=== PATIENT | female | born 1975 | race Caucasian/White ===

== ENCOUNTER → 2020-06-26 | Outpatient (CLI) | payer BC ==
--- NOTE | 2020-06-26 11:57 | Diagnostic Imaging Report ---
Left shoulder 1124 hours. INDICATION: Shoulder pain. 3 views were obtained. There are no prior studies available for comparison. FINDINGS: There is no fracture, dislocation or acute bony abnormality evident. There is moderate degenerative disease of the glenohumeral joint and acromioclavicular joint. The soft tissues are unremarkable. IMPRESSION: 1. There is no evidence for an acute bony abnormality. 2. If there is clinical concern regarding injury to the rotator cuff or labrum, then MRI would be recommended for further study. Dictated by: Dictated on workstation # [id number]
== END ==
LOC: RAD FS 11:08
PROVIDERS: ATTEND Nurse Practitioner
DX: M25.512 Pain in left shoulder (principal)
CPT/HCPCS: 73030

== ENCOUNTER 2021-04-29 09:36 | Outpatient (CLI) | payer BC ==
[~2021-04-29] VITALS: Ht 157.5 cm; Wt 114.5 kg
[2021-04-29] MEDS ORDERED: SUCR1TAB36 PO (11:26)
[2021-04-29] MEDS ORDERED: LORA-407 PO (11:26)
[2021-04-29] MEDS ORDERED: LABE100T6 PO (11:26)
[2021-04-29] MEDS ORDERED: LOSA25TA41 PO (11:26)
[2021-04-29] MEDS ORDERED: OMEP20CA18 PO (11:26)
[2021-04-29] MEDS ORDERED: BUSP5TAB59 PO (11:26)
[2021-04-29] MEDS ORDERED: HYDR-3584 PO (11:26)
[2021-04-29] MEDS ORDERED: SPIR25TA5 PO (11:26)
== END 2021-04-29 15:55 | disposition home or self-care (01) ==
LOC: PREOP 09:36
PROVIDERS: ATTEND Surgery
DX: Z01.818 Encounter for other preprocedural examination (principal)

== ENCOUNTER → 2021-04-30 | Outpatient (CLI) | payer BC ==
[~2021-04-30] MED LIST: BUSP5TAB59 PO; HYDR-3584 PO; LABE100T6 PO; LORA-407 PO; LOSA25TA41 PO; OMEP20CA18 PO; SPIR25TA5 PO; SUCR1TAB36 PO
--- NOTE | 2021-04-30 09:43 | Diagnostic Imaging Report ---
PROCEDURE: US Gallbladder. TECHNIQUE: Multiple real-time grayscale images were obtained over the right upper quadrant in various projections. INDICATION: Right upper quadrant pain FINDINGS: The liver is normal in size without focal lesions. There is no biliary dilatation. Common bile duct measures 4 mm. There is no cholelithiasis, gallbladder wall thickening or pericholecystic fluid. Pancreas is not well-seen due to bowel gas. Right kidney is normal. There is no ascites. Aorta is not well-seen due to bowel gas. IVC is patent. Hepatopedal flow in main portal vein. IMPRESSION: Unremarkable right upper quadrant ultrasound Dictated by: Dictated on workstation # [id number]
== END ==
LOC: RAD FS 08:04
PROVIDERS: ATTEND Surgery
DX: R10.11 Right upper quadrant pain (principal); R11.2 Nausea with vomiting, unspecified
CPT/HCPCS: 76705

== ENCOUNTER → 2021-05-04 | Outpatient (CLI) | payer BC | LOC: LAB FS 10:00 | PROVIDERS: ATTEND Surgery | DX: Z01.812 Encounter for preprocedural laboratory examination (principal); Z12.11 Encounter for screening for malignant neoplasm of colon; K21.9 Gastro-esophageal reflux disease without esophagitis; Z20.822 Contact with and (suspected) exposure to COVID-19 | CPT/HCPCS: 87635 ==

== ENCOUNTER 2021-05-06 08:45 | Day surgery (SDC) | payer BC ==
--- NOTE | 2021-04-29 20:20 | HISTORY AND PHYSICAL ---
DATE OF SERVICE: DATE OF ADMISSION: 05/06/2021. ATTENDING PRIMARY CARE PHYSICIAN: Dr. Lennox Pineda. HISTORY OF PRESENT ILLNESS: The patient is a 45-year-old female who has had an epigastric crampy pain as well as intermittent episodes of diarrhea and constipation for the past several months. She reports that this has worsened over time and she did see her physician approximately 4 weeks ago and she was started on Protonix and Carafate. She describes the pain as sharp as well as burning sensation. Upon further questioning, she does report that she does have intermittent episodes of reflux type of symptoms as well as dysphagia. She is also in need of a screening colonoscopy. She did have a CT scan for another reason and diverticulosis was identified. Again, she reports intermittent episodes of diarrhea and constipation. No red blood per rectum nor any dark tarry stools. She also does have a remote family history of colon cancer with her maternal grandfather having the disease. She also reports that she has had nausea as well as episodes of vomiting and bloating after eating meals. She also does report again pain in the upper abdominal quadrants. PAST MEDICAL HISTORY: Hypertension, anxiety, seasonal allergies, diverticulosis. PAST SURGICAL HISTORY: Left knee arthroscopy in 1993, D and C in 2007. ALLERGIES: No known drug allergies. MEDICATIONS: Labetalol 100 mg b.i.d., spironolactone/hydrochlorothiazide 25/25 mg daily, Protonix 40 mg daily, Carafate 1 gram q.i.d., tizanidine 2 mg t.i.d., losartan 50 mg b.i.d., lorazepam 0.5 mg q.6 hours p.r.n., buspirone 5 mg b.i.d. SOCIAL HISTORY: Short interval of smoking for approximately 6 months, half a pack a day, in 2002. Negative alcohol. FAMILY HISTORY: Mother, father, hypertension. Maternal grandfather, colon cancer. VITAL SIGNS: Blood pressure 169/101. Current weight 252.7 pounds. REVIEW OF SYSTEMS: A well-nourished female, currently in no acute distress. She is not experiencing any shortness of breath or difficulty breathing. No chest pain, palpitations, diaphoresis. Intermittent episodes of nausea and vomiting, especially after meals and this is associated with abdominal bloating as well. She also reports that she has had epigastric burning sensation as well as a sharp pain, which has been intermittent for the past three months; however, has become more constant. She is also in need of a screening colonoscopy. She was found to have diverticulosis on incidental CT scan as well. She also reports that she has had some dysphagia with difficulty swallowing with a substernal chest pressure after food bolus. No red blood per rectum, no dark tarry stools. No fever, chills, no recent inadvertent weight loss. All other review of systems negative. PHYSICAL EXAMINATION: CHEST: Clear. Good breath sounds bilaterally. HEART: Regular. No murmurs. EXTREMITIES: No lower extremity edema, negative Homans sign. HEENT: No scleral icterus. NECK: No cervical lymphadenopathy. ABDOMEN: Nondistended, soft with mild epigastric tenderness upon deep palpation. No peritoneal signs. SKIN: Warm, dry. ASSESSMENT AND PLAN: A 45-year-old female with atypical gastroesophageal reflux disease, dysphagia, abdominal bloating and nausea and vomiting following meals. She is also having issues with dysphagia. She is also in need of a screening colonoscopy. At this time, we will schedule her for an EGD and colonoscopy. The differential diagnosis includes hiatal hernia, reflux esophagitis as well as a distal esophageal stricture. She may also have peptic ulcer disease and we will schedule her for an EGD with biopsies as appropriate as well as a possible balloon dilatation. She is also in need of a screening colonoscopy based on her age; however, she also does have intermittent episodes of diarrhea and constipation. We will also proceed with workup for her gallbladder including ultrasound and if this is negative, a HIDA scan for the possibility of biliary dyskinesia. Job ID: [id number] DocumentID: [id number] Dictated Date: 04/28/2021 16:03:29 Health Science Instructor Date: 04/28/2021 16:19:13 Dictated By: PALOMA WILLS MD
[2021-05-06] VITALS (14 sets, daily range): BP systolic 116–183; BP diastolic 56–100
[~2021-05-06] VITALS: Ht 157 cm; Wt 114.5 kg
[2021-05-06] MEDS ORDERED: HURRICAINE EXT TUBE (BENZOCAINE) XX PRN (09:00)
[2021-05-06] MEDS ORDERED: LIDOCAINE JELLY 2% 6 ML SYRINGE MM PRN (09:00)
[2021-05-06] MEDS ORDERED: MIDAZOLAM 5 MG/5 ML (VERSED) VIAL IV ONE (09:00)
[2021-05-06] MEDS ORDERED: fentaNYL INJ 100 MCG/2 ML AMP IVP ONE (09:00)
[2021-05-06] MEDS ORDERED: NS IV 500 ML 500 ML IV PRN (09:00)
[2021-05-06] MEDS ORDERED: NS IV 500 ML 500 ML ONE (09:05)
--- NOTE | 2021-05-06 10:12 | Progress Note-Pre Operative ---
Pre-Operative Progress Note H&P Reviewed The H&P was reviewed, patient examined and no changes noted. Date Seen by Provider: May 06, 2021 Time Seen by Provider: 10:00 Date H&P Reviewed: May 06, 2021 Time H&P Reviewed: 10:00 Pre-Operative Diagnosis: GERD, screening PALOMA WILLS MD May 06, 2021 10:12
--- NOTE | 2021-05-06 10:12 | Conscious Sedation/ASA ---
Conscious Sedation Pre-Proced Time 09:30 ASA Score 2 For ASA 3 and 4: Consider anesthesia and medical clearance. Also, for patients with a history of failed moderate sedation consider anesthesia. Airway Lungs Heart ASA score ASA 1: a normal healthy patient ASA 2: a patient with a mild systemic disease (mid diabetes, controlled hypertension, obesity ASA 3: a patient with a severe systemic disease that limits activity (angina, COPD, prior Myocardial infarction) ASA 4: a patient with an incapacitating disease that is a constant threat to life (CHF, renal failure) ASA 5: a moribund patient not expected to survive 24 hrs. (ruptured aneurysm) ASA 6: a declared brain- patient whose organs are being harvested. For emergent operations, add the letter E after the classification Mallampati Classification Grade 2 Sedation Plan Analgesia, Amnesia, Plan communicated to team members, Discussed options with patient/fam, Discussed risks with patient/fam The patient is an appropriate candidate to undergo the planned procedure, sedation, and anesthesia. The patient immediately re-assessed prior to indication. PALOMA WILLS MD May 06, 2021 10:12
--- NOTE | 2021-05-06 10:14 | Discharge Inst-Surgical ---
D/C Lap Instructions-ELMA Follow Up Activity as tolerated High Fiber Diet 25g or more per day Avoid Alcohol, Caffeine, Spicy Garwood and Acid foods. Drink 64 fluid oz or more of fluids per day. Symptoms to Report: Fever over 101 degree F, Nausea/Vomiting If any problems/questions: Contact your physician or go to Emergency Room PALOMA WILLS MD May 06, 2021 10:14
[2021-05-06] MEDS ORDERED: ONDANSETRON 4 MG/2 ML (SDV) Z0FRAN IVP PRN (10:15)
[2021-05-06] MEDS ORDERED: ACETAMINOPHEN 325 MG TABLET PO PRN (10:15)
[2021-05-06] MEDS ORDERED: morphine INJ 10 MG/ML 1ML (SYR OR VIAL) IVP PRN ×2 (10:15)
[2021-05-06] MEDS ORDERED: HYDROcodone/APAP 5 MG/325 MG (LORTAB) TAB PO PRN (10:15)
--- NOTE | 2021-05-06 11:06 | Progress Note-Post Operative ---
Post-Operative Progess Note Surgeon (s)/Concrete Boom Operator (s) Surgeon PALOMA WILLS MD Concrete Boom Operator: none Pre-Operative Diagnosis GERD, screening Post-Operative Diagnosis reflux esophagitis(stage 2), mild distal esophageal stricture, mild-mod gastritis. mild chronic stage 2 ext and int hemorrhoids, mild sigmoid diverticulosis. Procedure & Operative Findings Date of Procedure 05/06/21 Procedure Performed/Findings EGD with bx and balloon dilatation. colonoscopy Anesthesia Type cs Estimated Blood Loss Estimated blood loss (mL): minimal Specimens/Packing Specimens Removed ge jxn, antrum PALOMA WILLS MD May 06, 2021 11:05
--- NOTE | 2021-05-06 17:47 | OPERATIVE REPORT ---
DATE OF SERVICE: 05/06/2021 ATTENDING PRIMARY CARE PHYSICIAN: Dr. Lennox Pineda. PREOPERATIVE DIAGNOSES: Gastroesophageal reflux disease, dysphagia, constipation, screening colonoscopy. POSTOPERATIVE DIAGNOSES: Reflux esophagitis stage II, mild distal esophageal stricture, small hiatal hernia approximately 2 cm in size, mild to moderate gastritis, no distal obstructions, mild chronic stage II external and internal hemorrhoids, mild sigmoid diverticulosis. PROCEDURE: EGD with biopsy and balloon dilatation, colonoscopy. SURGEON: Paloma Wills MD ANESTHESIA: Conscious sedation. ESTIMATED BLOOD LOSS: Minimal. FINDINGS: Reflux esophagitis stage II, mild distal esophageal stricture, small hiatal hernia approximately 2 cm in size, mild to moderate gastritis, no distal obstructions, mild chronic stage II external and internal hemorrhoids, mild sigmoid diverticulosis. DISPOSITION: The patient tolerated the procedure well. INDICATIONS: The patient is a 45-year-old female, who has had issues with gastroesophageal reflux disease with epigastric burning sensation as well as crampy pain for some time now; however, this has worsened. She states that this has progressed to dysphagia and have difficulty swallowing some types of foods on an intermittent basis. She also reports that she has been struggling with constipation and may have a bowel movement for a few days and when she does, the stool was hard and well-formed and does require straining upon defecation. DESCRIPTION OF PROCEDURE: The patient was brought to the endoscopy suite, laid in the left lateral decubitus position. After adequate IV pain and sedative medications and conscious sedation anesthesia, the mouthpiece was applied. The endoscope was placed in the mouth, visualizing the pharynx and hypopharyngeal region. Vocal cords, epiglottis and vallecula identified and appeared to be normal. The endoscope was gently abated esophageal opening and esophagus insufflated. The endoscope was then advanced through the first, second and third portions of esophagus at the level of GE junction, a reflux esophagitis stage II identified as well as a mild distal esophageal stricture and Schatzki's ring identified. This was biopsied with forceps with visualization of good hemostasis. The endoscope was then advanced in the stomach and endoscope retroflexed, visualizing a small hiatal hernia approximately 2 cm in size. This appeared to be a type 1 sliding hiatal hernia. There was a mild to moderate gastritis. No formal ulcerations, polyps, or any neoplasms. A biopsy was taken of the stomach antrum to rule out H. pylori with visualization of good hemostasis. The endoscope was then advanced to the pylorus and the first and second portion of the duodenum, which appeared normal with no distal obstructions. We then proceeded with balloon dilatation and the balloon was placed in the stomach and pulled back to the area of stricture and the balloon was then insufflated in a stepwise fashion from 2 then 4, then 6 atmospheres of pressure with moderate resistance and left this in place for approximately 60 seconds, which equated to 20 mm in luminal diameter. The balloon was then desufflated and removed with visualization of good hemostasis as well as no mucosal tears. Endoscope was then slowly withdrawn while taking a second look and suctioning of residual air with no additional findings. A digital rectal examination was performed, which revealed chronic stage II external and internal hemorrhoids, not actively edematous nor inflamed and no bleeding. Normal sphincter tone was felt and there were no palpable masses. The endoscope was then intubated into anus and rectum gently insufflated. The endoscope was then advanced through the valves of Gonsales of the rectum with no polyps or any neoplasms identified. Through the sigmoid colon, a mild sigmoid diverticulosis identified. There were no mucosal inflammatory changes to indicate any active diverticulitis. The endoscope was then advanced to the remainder of the descending, transverse and ascending colon to the cecum. These segments were normal. There were no polyps or any neoplasms identified throughout the colon or rectum. The endoscope was then slowly withdrawn while taking a second look and suctioning of residual air with no additional findings. The patient tolerated the procedure well. We will recommend the necessary lifestyle and diet accommodation including small and more frequent meals, avoidance of eating at night as well as head elevation while lying supine. She also needs to avoid caffeinated beverages, spicy, greasy and acidic foods. We will also have her continue with the recently prescribed Protonix daily. We will also recommend a high fiber diet with at least 25 to 30 grams of fiber daily as well as significant amounts of water to promote soft stools on a daily basis. If she is asymptomatic and has normal bowel function then she does not need another colonoscopy for another 10 years. Job ID: [id number] DocumentID: [id number] Dictated Date: 05/06/2021 11:03:07 Automobile Repair Service Estimator Date: 05/06/2021 17:47:10 Dictated By: PALOMA WILLS MD
== END 2021-05-06 11:45 | disposition home or self-care (01) ==
LOC: ENDO 08:45
PROVIDERS: ATTEND Surgery
DX: K21.00 Gastro-esophageal reflux disease with esophagitis, without bleeding (principal); K59.00 Constipation, unspecified; K22.2 Esophageal obstruction; K44.9 Diaphragmatic hernia without obstruction or gangrene; K29.70 Gastritis, unspecified, without bleeding; K64.1 Second degree hemorrhoids; K57.30 Diverticulosis of large intestine without perforation or abscess without bleeding; I10 Essential (primary) hypertension; F41.9 Anxiety disorder, unspecified; J30.2 Other seasonal allergic rhinitis; Z79.899 Other long term (current) drug therapy; Z80.0 Family history of malignant neoplasm of digestive organs
CPT/HCPCS: 84703; 88305

== ENCOUNTER 2021-05-08 15:32 | Emergency (ER) | payer BC ==
[~2021-05-08] VITALS: Ht 160 cm; Wt 114.3 kg
--- NOTE | 2021-05-08 16:02 | ED GI ---
General Chief Complaint: Abdominal/GI Problems Stated Complaint: UPPER ABD PAIN Source of Information: Patient, Old Records History of Present Illness Date Seen by Provider: May 08, 2021 Time Seen by Provider: 15:37 Initial Comments 45-year-old female presenting with complaint of epigastric and subcostal pain as well as bloating in her abdomen. She had a EGD and colonoscopy along with dilation of her esophagus done by Dr. BUCK on Tuesday. Since then she was having nausea and vomiting on . Today she was having epigastric pain an d pain below her ribs as well as bloated sensation. She denies any fever but was having chills yesterday. She has no pain with urination. She has not seen any blood when she vomits or in her stool. She has tried to contact Dr. BUCK but when she called she got a [facility] nurse that told her to come to the ED here in [place] because of her symptoms and not being able to reach Dr. Buck. Timing/Duration: 1-2 Days Severity/Quality: Moderate, Burning, Sharp Location: Epigastric Radiation: Other (along subcostal margins) Associated Symptoms: No Back Pain, No Chest Pain, No Diaphoresis, No Fever/Chills, No Fatigue, No Headache; Heartburn, Nausea/Vomiting; No Rash, No Shortness of Air, No Swelling/Mass in Abdomen, No Syncope, No Weakness Allergies and Home Medications Allergies Coded Allergies: Sulfa (Sulfonamide Antibiotics) (Verified Allergy, Mild, 05/06/21) Home Medications Buspirone HCl 5 Mg Tablet, 5 MG PO BID, (Reported) Hydroxyzine HCl 10 Mg Tablet, 10 MG PO ONCE, (Reported) Labetalol HCl 100 Mg Tablet, 100 MG PO BID, (Reported) Lorazepam 2 Mg Tablet, 2 MG PO PRN, (Reported) Losartan Potassium 25 Mg Tablet, 25 MG PO BID, (Reported) Omeprazole 20 Mg Capsule.dr, 20 MG PO DAILY, (Reported) Spironolactone 25 Mg Tablet, 25 MG PO ONCE, (Reported) Sucralfate 1 Gm Tablet, 1 GM PO AC, (Reported) Patient Home Medication List Home Medication List Reviewed: Yes Review of Systems Review of Systems Constitutional: see HPI, chills; No fever EENTM: No Symptoms Reported Respiratory: No Symptoms Reported Cardiovascular: No Symptoms Reported Gastrointestinal: See HPI Genitourinary: No Symptoms Reported Musculoskeletal: no symptoms reported Skin: no symptoms reported Psychiatric/Neurological: No Symptoms Reported Past [id number]-Wicmpt-Qyyqcb Hx Seasonal Allergies Seasonal Allergies: Yes Past Medical History Surgeries: Yes (WISDOM TEETH/D&C/R KNEE SCOPE) Orthopedic Respiratory: No Cardiac: Yes Hypertension Neurological: No Reproductive Disorders: No Sexually Transmitted Disease: No Gastrointestinal: Yes Diverticulosis Musculoskeletal: No Endocrine: Yes HEENT: No Cancer: No Anxiety, Depression Integumentary: No Blood Disorders: No Physical Exam Vital Signs Vital Signs - First Documented 05/08/21 15:35 Temp 36.5 Pulse 70 Resp 18 B/P (MAP) 159/89 (112) Pulse Ox 98 O2 Delivery Room Air Capillary Refill : Height/Weight/BMI Height: '" Weight: lbs. oz. kg; 46.45 BMI Method: General Appearance: WD/WN, mild distress HEENT: PERRL/EOMI Neck: non-tender, full range of motion, supple, normal inspection Respiratory: chest non-tender, lungs clear, normal breath sounds Cardiovascular: normal peripheral pulses, regular rate, rhythm Gastrointestinal: normal bowel sounds, soft, no pulsatile mass; No guarding, No rebound; tenderness (epigastric/sub-xiphoid and along subcostal margins) Rectal: deferred Extremities: normal range of motion, non-tender, normal capillary refill Neurologic/Psychiatric: alert, oriented x 3 Skin: normal color, warm/dry Images 1 - epigastric tenderness to palpation and tender along subcostal margins Progress/Results/Core Measures Results/Orders My Orders Orders - GIL MAC MD Acute Abd Series (05/08/21 15:55) Vital Signs/I&O 05/08/21 05/08/21 15:35 16:57 Temp 36.5 Pulse 70 88 Resp 18 16 B/P (MAP) 159/89 (112) 131/78 Pulse Ox 98 96 O2 Delivery Room Air Room Air Progress Progress Note #1: Progress Note Check acute abdomen series. Offered patient Zofran and she refused. Offered patient GI cocktail and she refused. She stated that she was given a GI cocktail of the numbing sensation of her mouth and throat would make her have a panic attack. She states that she has Zofran waiting for her at the pharmacy and will pick that up after finishing here. Progress Note #2: Progress Note Acute abdomen series shows no definite free air or signs of perforation. She also has no signs of obstruction or blockage. Left voicemail with Dr. BUCK to have him return call if he was available. Will discharge patient to use Zofran for nausea and follow-up plan to liquid diet and advance as tolerated. Diagnostic Imaging Diagonstic Imaging: Xray Plain Films/CT/US/NM/MRI: abdomen Comments NAME: [facility] REC#: [id number] PT STATUS: REG ER : 1975 PHYSICIAN: GIL MAC MD ADMIT DATE: 05/08/21/ER FS Draft Date of Exam:05/08/21 ACUTE ABD SERIES INDICATION: epigastric and subcostal pain, bloating, s/p EGD/colonoscopy COMPARISON: None FINDINGS: Supine and upright views of the abdomen show a nondistended bowel gas pattern. No abnormal air fluid levels or free intraperitoneal air is seen. No abnormal extraosseous calcifications are seen. Bony and soft tissue structures are within normal limits. No organomegaly is identified. Accompanying upright chest shows normal heart size and pulmonary vascularity. The lungs are well aerated and clear. The mediastinum is normal in appearance. IMPRESSION: 1. No bowel obstruction or free air. 2. Normal chest. No pneumonia or pulmonary edema. Dictated on workstation # [id number] Dict: 05/08/21 1643 Trans: 05/08/21 1645 [facility] [id number] Interpreted by: SARA MERCADO MD Electronically signed by: Departure Impression Primary Impression: Epigastric abdominal pain Additional Impression: Abdominal bloating Disposition: 01 HOME, SELF-CARE Condition: Stable Departure-Patient Inst. Decision time for Depature: 16:54 Referrals: PALOMA BUCK MD SELF,ASHWINI LIGHT (PCP/Family) Primary Care Physician Patient Instructions: Colonoscopy (DC), EGD-ESOPHAGOGASTRODUODENOSCOPY, Gastrit is ED, Nausea and Vomiting, Adult ED, Ulcer and Gastritis Diet Add. Discharge Instructions: No signs of perforation or obstruction. Follow a liquid diet and advance as you tolerate it to more regular and solid foods. Use the Zofran to help with nausea. Check with Dr. Buck next week for continued concerns/problems. All discharge instructions reviewed with patient and/or family. Voiced understanding. GIL MAC MD May 08, 2021 16:02
--- NOTE | 2021-05-08 16:45 | Diagnostic Imaging Report ---
INDICATION: epigastric and subcostal pain, bloating, s/p EGD/colonoscopy COMPARISON: None FINDINGS: Supine and upright views of the abdomen show a nondistended bowel gas pattern. No abnormal air fluid levels or free intraperitoneal air is seen. No abnormal extraosseous calcifications are seen. Bony and soft tissue structures are within normal limits. No organomegaly is identified. Accompanying upright chest shows normal heart size and pulmonary vascularity. The lungs are well aerated and clear. The mediastinum is normal in appearance. IMPRESSION: 1. No bowel obstruction or free air. 2. Normal chest. No pneumonia or pulmonary edema. Dictated by: Dictated on workstation # [id number]
[2021-05-08 16:57] VITALS: BP 131/78
== END 2021-05-08 17:01 | disposition home or self-care (01) ==
LOC: EDUNIT# 15:32 → ER FS 15:33
DX: R10.13 Epigastric pain (principal); R14.0 Abdominal distension (gaseous); I10 Essential (primary) hypertension; F41.9 Anxiety disorder, unspecified; Z79.899 Other long term (current) drug therapy
CPT/HCPCS: 74022

== ENCOUNTER → 2021-05-15 | Outpatient (CLI) | payer BC ==
[~2021-05-15] MED LIST changes: +CATHETER FLUSH 10 ML SYR IV PRN
--- NOTE | 2021-05-15 15:59 | Diagnostic Imaging Report ---
INDICATION: Right upper quadrant pain with nausea and vomiting COMPARISON: Abdominal ultrasound from 04/30/2021 TECHNIQUE: Anterior scintigraphic imaging of the abdomen was performed after the intravenous administration of 5.49 mCi Tc-99m Choletec. FINDINGS: The upper abdomen was imaged for 60 minutes with the gamma camera. There is prompt homogeneous uptake of radiopharmaceutical by the liver. There is activity in the common duct and gallbladder by 20 minutes. Small bowel activity is seen by 50 minutes. After 60 minutes, the patient received 8 oz of ensure by mouth. After 60 minutes, the gallbladder ejection fraction was calculated to be 66% which is normal. IMPRESSION: 1. Patent common and cystic bile ducts. 2. No gallbladder dysfunction. Dictated by: Dictated on workstation # [id number]
== END ==
LOC: CARD 12:00
PROVIDERS: ATTEND Surgery
DX: R10.11 Right upper quadrant pain (principal); R11.2 Nausea with vomiting, unspecified
CPT/HCPCS: 78227; A9537

== ENCOUNTER → 2021-05-21 | Outpatient (CLI) | payer BC ==
[~2021-05-21] MED LIST changes: -CATHETER FLUSH 10 ML SYR IV PRN
== END ==
LOC: CARD 08:30
PROVIDERS: ATTEND Family Medicine
DX: R00.1 Bradycardia, unspecified (principal)
CPT/HCPCS: 93225; 93226

== ENCOUNTER → 2022-12-07 | Outpatient (CLI) | payer BC ==
[~2022-12-07] MED LIST changes: -LABE100T6 PO; +LABE100T9 PO
--- NOTE | 2022-12-07 14:35 | Diagnostic Imaging Report ---
EXAMINATION: Left knee radiographs, 3 views. COMPARISON: None. HISTORY: 47-year-old female, left knee pain. FINDINGS: There is a small to moderate knee joint effusion. There is moderate patellofemoral compartment joint space loss. There are prominent patellofemoral compartment osteophytes. There is moderate to severe lateral compartment joint space loss. There are lateral compartment osteophytes. There is no identified acute fracture. 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 Dictated by: Dictated on workstation # [id number]
== END ==
LOC: RAD FS 13:45
PROVIDERS: ATTEND Nurse Practitioner
DX: M17.12 Unilateral primary osteoarthritis, left knee (principal)
CPT/HCPCS: 73562

== ENCOUNTER 2023-01-01 11:01 | Emergency (ER) | payer BC ==
[~2023-01-01] VITALS: Ht 170 cm; Wt 105.0 kg
[2023-01-01] MEDS ORDERED: LIDOCAINE/EPI 2% 1:100,00 (XYLOCAINE) 20 ML VIAL INJ STA (11:11)
--- NOTE | 2023-01-01 11:14 | ED Head Injury ---
General Stated Complaint: LACERATION TO THE HEAD, BLEEDING HEAVILY Source: patient History of Present Illness Date Seen by Provider: Jan 01, 2023 Time Seen by Provider: 11:04 Initial Comments 47-year-old female presenting with complaints of laceration to her right for ehead. She was trying to clean out the house and tripped. She hit her head against a marble table in the hallway. She denies loss of consciousness but felt dizzy and nauseated. She denies taking any blood thinners. She was holding pressure but continued to have bleeding. She was unsure of her last tetanus booster. She has no change in her vision. There is been no drainage from her ears or nose. Occurred: just prior to arrival Severity: moderate Location: frontal (Right forehead) Method of Injury: direct blow, fell Loss of Consciousness: no loss of consciousness Associated Systoms: No Chest Pain, No Cough, No Diaphoresis, No Fever/Chills; Headaches; No Loss of Appetite, No Malaise; Nausea/Vomiting (Nausea but no vomiting); No Rash, No Seizure, No Shortness of Air, No Syncope, No Weakness Allergies and Home Medications Allergies Coded Allergies: Sulfa (Sulfonamide Antibiotics) (Verified Allergy, Mild, 05/06/21) Patient Home Medication List Home Medication List Reviewed: Yes Buspirone HCl (Buspirone HCl) 5 Mg Tablet, 5 MG PO BID, (Reported) Entered as Reported by: FERMIN SIFUENTES on 04/29/211125 Hydroxyzine HCl (Hydroxyzine HCl) 10 Mg Tablet, 10 MG PO ONCE, (Reported) Entered as Reported by: FERMIN SIFUENTES on 04/29/21 112 Labetalol HCl (Labetalol HCl) 100 Mg Tablet, 100 MG PO BID, (Reported) Entered as Reported by: FERMIN SIFUENTES on 04/29/21 112 Lorazepam (Ativan) 2 Mg Tablet, 2 MG PO PRN, (Reported) Entered as Reported by: FERMIN SIFUENTES on 04/29/211125 Losartan Potassium (Losartan Potassium) 25 Mg Tablet, 25 MG PO BID, (Reported) Entered as Reported by: FERMIN SIFUENTES on 04/29/21 112 Omeprazole (Omeprazole) 20 Mg Capsule.dr, 20 MG PO DAILY, (Reported) Entered as Reported by: FERMIN SIFUENTES on 04/29/211125 Spironolactone (Spironolactone) 25 Mg Tablet, 25 MG PO ONCE, (Reported) Entered as Reported by: FERMIN SIFUENTES on 04/29/211125 Sucralfate (Carafate) 1 Gm Tablet, 1 GM PO AC, (Reported) Entered as Reported by: FERMIN SIFUENTES on 04/29/211125 Review of Systems Review of Systems Constitutional: No chills; dizziness; No fever Eyes: Denies Photophobia, Denies Vision Changes Ears, Nose, Mouth, Throat: denies ear pain, denies ear discharge, denies nose pain, denies nose discharge, denies epistaxis Respiratory: No cough, No dyspnea on exertion, No hemoptysis Cardiovascular: no symptoms reported Gastrointestinal: see HPI Genitourinary: no symptoms reported Musculoskeletal: No neck pain Skin: see HPI Psychiatric/Neurological: Anxiety, Headache Hematologic/Lymphatic: Denies Blood Clots, Denies Easy Bleeding, Denies Easy Bruising Past Cdcvuzn-Vpzyfn-Xexelw Hx Seasonal Allergies Seasonal Allergies: Yes Past Medical History Surgery/Hospitalization HX: Hypertension Surgeries: Yes (WISDOM TEETH/D&C/R KNEE SCOPE) Orthopedic Respiratory: No Cardiac: Yes Hypertension Neurological: No Reproductive Disorders: No Sexually Transmitted Disease: No Gastrointestinal: Yes Diverticulosis Musculoskeletal: No Endocrine: Yes HEENT: No Cancer: No Anxiety, Depression Integumentary: No Blood Disorders: No Physical Exam Vital Signs Vital Signs - First Documented 01/01/23 11:22 Temp 35.9 Pulse 87 Resp 18 B/P (MAP) 155/98 (117) Pulse Ox 97 O2 Delivery Room Air Capillary Refill : Height, Weight, BMI Height: '" Weight: lbs. oz. kg; 44.00 BMI Method: General Appearance: WD/WN, no apparent distress HEENT: PERRL/EOMI, pharynx normal; No photophobia Neck: No non-tender, No full range of motion, No supple, No normal inspection Cardiovascular: No normal peripheral pulses, No regular rate, rhythm Respiratory: No chest non-tender, No lungs clear, No normal breath sounds Gastrointestinal: No normal bowel sounds, No non tender, No soft, No no pulsatile mass Extremities: No normal range of motion, No non-tender, No normal capillary refill Psychiatric: alert, oriented x 3 Crainal Nerves: normal hearing, normal speech, PERRL Coordination/Gait: normal gait Motor/Sensory: no motor deficit, no sensory deficit Skin: warm/dry Jasen Coma Score Best Eye Response: (4) Open Spontaneously Best Verbal Response: (5) Oriented Best Motor Response: (6) Obeys Commands Jasen Total: 15 Images 1 - 2.3 cm laceration to the right forehead near hair line Procedures/Interventions Wound Location: Face (Right forehead) Wound Length (cm): 2.3 Wound's Depth, Shape: linear, contused tissue, sub Q Wound Explored: clean Irrigated w/ Saline (ccs): 100 Anesthesia: Lidocaine w/ Epi Volume Anesthetic (ccs): 6 Suture: Ethlion Suture Size: 5-0 Number of Sutures: 8 Layer Closure?: 1 Sterile Dressing Applied?: Yes Progress After obtaining verbal consent from the patient the wound was anesthetized with 2% lidocaine with epinephrine. Using a total of 6 mL of anesthetic the wound was infiltrated. Then using sterile water and chlorhexidine scrubs of the wound was cleaned. Using 5-0 Ethilon a total of 8 simple interrupted stitches were placed to approximate the wound edges. Wound edges were well approximated and patient tolerated procedure well without any immediate complication. Counseled on follow-up and return precautions. Have the stitches out in 7 to 10 days. Be seen sooner if concerns for infection. Progress/Results/Core Measures Results/Orders My Orders Orders - GIL MAC MD Lidocaine/Epi 2% 1:100,000 (Xylocaine/Ep (01/01/23 11:11) Dipht,Pertuss(Acell),Tet Adult (Boostrix (01/01/23 11:15) Ct Head/Cervical Spine Wo (01/01/23 11:11) Ice: Apply To Affected Area (01/01/23 11:11) Ondansetron Oral Dissolve Tab (Zofran (01/01/23 11:29) Ondansetron Oral Dissolve Tab (Zofran (01/01/23 11:31) Wound Dressing-Ed (01/01/23 11:59) Acetaminophen Tablet/Caplet (Tylenol T (01/01/23 11:59) Medications Given in ED Current Medications Medications Dose Ordered Sig/Phoebe Route Start Time Stop Time Status Last Admin Dose Admin Diphtheria/ Tetanus/Acell Pertussis 0.5 ml ONCE ONCE IM 01/01/23 11:15 01/01/23 11:16 DC 01/01/23 11:22 0.5 ML Ondansetron HCl 4 mg STK-MED ONCE .ROUTE 01/01/23 11:29 01/01/23 11:30 DC 01/01/23 11:32 4 MG Vital Signs/I&O 01/01/23 11:22 Temp 35.9 Pulse 87 Resp 18 B/P (MAP) 155/98 (117) Pulse Ox 97 O2 Delivery Room Air Progress Progress Note #1: Progress Note Potential diagnosis of concussion, minor head injury, intracranial hemorrhage, skull fracture, cervical spine fracture, forehead laceration. Using pressure over the wound the bleeding was controlled. The wound was further examined and was a 2.3 cm linear laceration to the right forehead. There did appear to be an superfiical artery involved with the cut and bleeding. Using 2% lidocaine with epinephrine the wound was anesthetized and then cleaned with chlorhexadine scrub soap and sterile water. Using 5-0 Ethilon a total of 8 simple interrupted stitches were placed to approximate wound edges. She was given a single dose of zofran 4 mg ODT to help with nausea. After the wound was closed and bleeding controlled an ice pack was applied. Encouraged to keep wound covered and dressed for first 24 hours but could leave open after that, unless it might get dirty. Watch for signs of infection such as increasing redness, pus draining from wound, fever over 101 Fahrenheit. Try to keep head elevated 30 to 45 degrees to help limit swelling and bruising. Apply ice 15 to 20 minutes every few hours especially in these first couple of days to help with bruising and swelling. With her continued dizziness and headache we will obtain a CT scan of the head and cervical spine without contrast to look for signs of skull fracture, intracranial hemorrhage, spine fracture. Administer acetaminophen 650 mg p.o. x1 for headache. Progress Note #2: Progress Note CT scan of the head and cervical spine on my review and personal interpretation did not show acute fracture or intracranial hemorrhage. Tetanus shot was updated since patient was unsure of the last shot that she had had. Counseled to have the stitches out in 7 to 10 days. Progress Note #3: Time: 12:32 Progress Note I reviewed the radiologist report at 1232 and they did not see any acute intracranial hemorrhage or fractures. Counseled patient and family on findings and results. Again reviewed return precautions and discharge instructions. Proceed with plan as above. Advised she can take ivzy-wpx-zarmxin acetaminophen or ibuprofen as needed for pain. Diagnostic Imaging Diagonstic Imaging: CT Plain Films/CT/US/NM/MRI: c-spine, head Comments NAME: FLAKO DE LEON [facility] REC#: [id number] PT STATUS: REG ER : 1975 PHYSICIAN: GIL MAC MD ADMIT DATE: 01/01/23/ER FS Draft Date of Exam:01/01/23 CT HEAD/CERVICAL SPINE WO PROCEDURE: CT head and CT cervical spine without contrast. TECHNIQUE: Multiple contiguous axial images were obtained through the brain and cervical spine without the use of intravenous contrast. Sagittal and coronal reformations through the cervical spine were then performed. Auto Exposure Controls were utilized during the CT exam to meet ALARA standards for radiation dose reduction. INDICATION: Trauma. Right forehead laceration. Fall. COMPARISON: None. FINDINGS: CT HEAD: No intracranial hemorrhage, mass effect, hydrocephalus or extra-axial fluid collections. No CT evidence of a territorial infarction. Scalp contusion overlying the right frontal convexity. No fractures. Mild mucosal thickening in the left maxillary sinus. Mastoids are clear. CT CERVICAL SPINE: Normal alignment. Vertebral body heights preserved. No fractures. Mild scattered spondylotic changes. Paravertebral soft tissues are unremarkable. Lung apices are clear. IMPRESSION: 1. Small scalp contusion overlying the right frontal convexity. No underlying fracture. 2. No acute intracranial or cervical spine CT findings. Dictated on workstation # [id number] Dict: 01/01/23 1220 Trans: 01/01/23 1227 [facility] [id number] Interpreted by: RALPH WISE MD Electronically signed by: Reviewed: Reviewed by Me (I reviewed the radiologist report at 1232) Departure Impression Primary Impression: Laceration of skin of forehead without complication Qualified Codes: S01.81XA - Laceration without foreign body of other part of head, initial encounter Additional Impressions: Fall at home Qualified Codes: W19.XXXA - Unspecified fall, initial encounter; Y92.009 - Unspecified place in unspecified non-institutional (private) residence as the place of occurrence of the external cause Closed head injury without loss of consciousness Qualified Codes: S09.90XA - Unspecified injury of head, initial encounter Disposition: 01 HOME, SELF-CARE Condition: Stable Departure-Patient Inst. Decision time for Depature: 12:36 Referrals: ASHWINI AGUILAR MD (PCP/Family) Primary Care Physician Patient Instructions: Minor Head Injury, Adult ED, Laceration Repair With Stitches ED, Concussion, Adult ED Add. Discharge Instructions: Keep wound clean and dry for the first 24 hours. After that you may remove the dressing and wash normally but do not soak it. You could continue to dress it with antibiotic ointment and keep it covered with a dressing or leave it open to air. If it might get dirty make sure that it is covered. The stitches should be removed in 7 to 10 days. You can return to the emergency department to have that done or see your primary care provider. If you see signs of infection such as pus draining from the wound, redness spreading across her forehead, fever over 101 Fahrenheit then you should be seen sooner as she might need antibiotics. Apply ice 10 to 15 minutes every few hours these first couple of days to help limit bruising and swelling. May take acetaminophen and NSAIDS such as Naproxen or Ibuprofen pmls-vjk-dhctzaf to help with pain as needed. Stay well hydrated and get plenty of rest. Try to keep your head elevated 30-45 degrees to help limit swelling and bruising. You will develop some bruising and this could settle or spread down your face and around your eye or cheek. GIL MAC MD Jan 01, 2023 11:13
[2023-01-01] MEDS ORDERED: TETANUS,DIPTH,PERTUSS P/F (BOOSTRIX) 0.5 ML VIAL IM ONE (11:15)
[2023-01-01 11:22] VITALS: BP 155/98
[2023-01-01] MEDS ORDERED: ONDANSETRON 4 MG (ZOFRAN) ORAL DISSOLVE TAB ONE (11:29)
[2023-01-01] MEDS ORDERED: ONDANSETRON 4 MG (ZOFRAN) ORAL DISSOLVE TAB PO STA (11:31)
[2023-01-01] MEDS ORDERED: ACETAMINOPHEN 325 MG TABLET PO STA (11:59)
--- NOTE | 2023-01-01 12:28 | Diagnostic Imaging Report ---
PROCEDURE: CT head and CT cervical spine without contrast. TECHNIQUE: Multiple contiguous axial images were obtained through the brain and cervical spine without the use of intravenous contrast. Sagittal and coronal reformations through the cervical spine were then performed. Auto Exposure Controls were utilized during the CT exam to meet ALARA standards for radiation dose reduction. INDICATION: Trauma. Right forehead laceration. Fall. COMPARISON: None. FINDINGS: CT HEAD: No intracranial hemorrhage, mass effect, hydrocephalus or extra-axial fluid collections. No CT evidence of a territorial infarction. Scalp contusion overlying the right frontal convexity. No fractures. Mild mucosal thickening in the left maxillary sinus. Mastoids are clear. CT CERVICAL SPINE: Normal alignment. Vertebral body heights preserved. No fractures. Mild scattered spondylotic changes. Paravertebral soft tissues are unremarkable. Lung apices are clear. IMPRESSION: 1. Small scalp contusion overlying the right frontal convexity. No underlying fracture. 2. No acute intracranial or cervical spine CT findings. Dictated by: Dictated on workstation # [id number]
== END 2023-01-01 12:45 | disposition home or self-care (01) ==
LOC: EDUNIT# 11:01 → ER FS 11:03
DX: S09.90XA Unspecified injury of head, initial encounter (principal); S01.81XA Laceration without foreign body of other part of head, initial encounter; R40.2362 Coma scale, best motor response, obeys commands, at arrival to emergency department; R40.2142 Coma scale, eyes open, spontaneous, at arrival to emergency department; R40.2252 Coma scale, best verbal response, oriented, at arrival to emergency department; Z23 Encounter for immunization; W01.198A Fall on same level from slipping, tripping and stumbling with subsequent striking against other object, initial encounter; Y92.009 Unspecified place in unspecified non-institutional (private) residence as the place of occurrence of the external cause
CPT/HCPCS: 12011; 70450; 72125; 90715

== ENCOUNTER 2023-02-27 19:47 | Emergency (ER) | payer BC ==
[2023-02-27 19:57] LABS: BILIRUBIN,URINE NEGATIVE (NEGATIVE); CLARITY,URINE CLEAR; COLOR,URINE YELLOW; GLUCOSE, URINE (UA) NEGATIVE (NEGATIVE); KETONES,URINE NEGATIVE (NEGATIVE); LEUKOCYTE ESTERASE ,URINE NEGATIVE (NEGATIVE); NITRITE,URINE NEGATIVE (NEGATIVE); PH,URINE 5.5 (5-9); PROTEIN,URINE NEGATIVE (NEGATIVE)
[2023-02-27 20:02] LABS: BACTERIA,URINE FEW /HPF
[2023-02-27] MEDS ORDERED: KETOROLAC 15 MG/ML VIAL IVP STA (20:08)
[2023-02-27] MEDS ORDERED: PANTOPRAZOLE 40 MG (PROTONIX) VIAL IV STA (20:08)
[2023-02-27] MEDS ORDERED: fentaNYL INJ 100 MCG/2 ML AMP IVP STA ×2 (20:08→21:36)
[2023-02-27] MEDS ORDERED: NS IV 1000 ML 1,000 ML IV STA (20:09)
[2023-02-27 20:11] LABS: BASOPHILS % (AUTO) 0 % (0-10); EOSINOPHILS # (AUTO) 0.3 10^3/uL (0.0-0.3); EOSINOPHILS % (AUTO) 3 % (0-10); HEMATOCRIT 39 % (35-52); HEMOGLOBIN 13.5 g/dL (11.5-16.0); LYMPHOCYTES # (AUTO) 3.3 10^3/uL (1.0-4.0); LYMPHOCYTES % (AUTO) 36 % (12-44); MEAN CORPUSCULAR HEMOGLOBIN 31 pg (25-34); MEAN CORPUSCULAR HGB CONC 35 g/dL (32-36); MEAN CORPUSCULAR VOLUME 88 fL (80-99); MEAN PLATELET VOLUME 9.7 fL (9.0-12.2); MONOCYTES # (AUTO) 0.7 10^3/uL (0.0-1.0); MONOCYTES % (AUTO) 7 % (0-12); NEUTROPHILS # (AUTO) 4.8 10^3/uL (1.8-7.8); NEUTROPHILS % (AUTO) 53 % (42-75); PLATELET COUNT 247 10^3/uL (130-400); WHITE BLOOD COUNT 9.1 10^3/uL (4.3-11.0)
[2023-02-27] MEDS ORDERED: NS 100 ML (IVPB) BAG IV ONE (20:15)
[2023-02-27] MEDS ORDERED: HOLD METFORMIN - RECEIVED CONTRAST 20 ML VIAL IV SCH (20:15)
[2023-02-27] MEDS ORDERED: IOHEXOL 350 MG/ML 100 ML (OMNIPAQUE 350) VIAL IV ONE (20:15)
--- NOTE | 2023-02-27 20:15 | ED GI ---
General Chief Complaint: Abdominal/GI Problems Stated Complaint: LB ADB PAIN Nursing Triage Note: Pt complaining of epigastric pain that started around 1400 today Source of Information: Patient History of Present Illness Date Seen by Provider: February 27, 2023 Time Seen by Provider: 19:51 Initial Comments 47-year-old female presenting with complaints of epigastric and right upper quadrant abdominal pain that started around 1400 today. She was eating some [place] food when the pain started. She was not able to finish the [place] food because she did not feel well. She has a burning and pressure pain that is worse with palpation. She has tried making herself throw up as well as taking simethicone, Tums, baking soda with water. She does not feel like anything was helping with her pain. Her pain continued and was increasing and is now at a 7- 8 out of 10. She states that it feels different than when she has had heart burn and reflux in the past. She did have an EGD done in April [address] BUCK that had shown grade 2 GERD with esophageal stricture that required dilation. She has not followed up with Dr. BUCK or any surgeon since that procedure in 2020. She states that she is modified her diet and decreased chocolate and coffee intake which had seemed to be triggers for her GERD. She states her last bowel movement was earlier today and was normal. She denies any pain or burning with urination. She has not had a fever or chills. The pain does go into her back some if she takes a deep breath. Timing/Duration: 4-6 Hours Severity/Quality: Severe, Burning (and pressure) Location: RUQ, Epigastric Radiation: Back (with deep breaths) Activities at Onset: Other (eating korean food) Modifying Factors: Worsens With Eating Associated Symptoms: No Chest Pain, No Diaphoresis, No Fever/Chills, No Fatigue, No Headache; Nausea/Vomiting (nausea and had forced herself to throw up but it did not help her symptoms); No Shortness of Air, No Swelling/Mass in Abdomen, No Syncope, No Weakness Allergies and Home Medications Allergies Coded Allergies: Sulfa (Sulfonamide Antibiotics) (Verified Allergy, Mild, 05/06/21) Patient Home Medication List Home Medication List Reviewed: Yes Buspirone HCl (Buspirone HCl) 5 Mg Tablet, 5 MG PO BID, (Reported) Entered as Reported by: FERMIN SIFUENTES on 04/29/211125 Hydrocodone/Acetaminophen (Hydrocodone-Acetamin 5-325 mg) 5 Mg-325 Mg Tablet, 1 TAB PO Q6H PRN for PAIN SEVERE Prescribed by: GIL MAC on 02/27/232146 Hydroxyzine HCl (Hydroxyzine HCl) 10 Mg Tablet, 10 MG PO ONCE, (Reported) Entered as Reported by: FERMIN SIFUENTES on 04/29/211125 Labetalol HCl (Labetalol HCl) 100 Mg Tablet, 100 MG PO BID, (Reported) Entered as Reported by: FERMIN SIFUENTES on 04/29/211125 Lorazepam (Ativan) 2 Mg Tablet, 2 MG PO PRN, (Reported) Entered as Reported by: FERMIN SIFUENTES on 04/29/211125 Losartan Potassium (Losartan Potassium) 25 Mg Tablet, 25 MG PO BID, (Reported) Entered as Reported by: FERMIN SIFUENTES on 04/29/211125 Omeprazole (Omeprazole) 20 Mg Capsule.dr, 20 MG PO DAILY, (Reported) Entered as Reported by: FERMIN SIFUENTES on 04/29/211125 Pantoprazole Sodium (Pantoprazole Sodium) 40 Mg Tablet.dr, 40 MG PO DAILY Prescribed by: GIL MAC on 02/27/232145 Spironolactone (Spironolactone) 25 Mg Tablet, 25 MG PO ONCE, (Reported) Entered as Reported by: FERMIN SIFUENTES on 04/29/211125 Sucralfate (Carafate) 1 Gm Tablet, 1 GM PO AC, (Reported) Entered as Reported by: FERMIN SIFUENTES on 04/29/211125 Review of Systems Review of Systems Constitutional: No chills, No fever EENTM: No Symptoms Reported Respiratory: No Symptoms Reported Cardiovascular: No Symptoms Reported Gastrointestinal: See HPI Genitourinary: Denies Pain Musculoskeletal: no symptoms reported Skin: no symptoms reported Psychiatric/Neurological: Anxiety Past Iqxehvo-Xikfno-Osqdcy Hx Patient Social History Tobacco Use?: No Use of E-Cig and/or Vaping dev: No Substance use?: No Alcohol Use?: No Pt feels they are or have been: No Seasonal Allergies Seasonal Allergies: Yes Past Medical History Surgery/Hospitalization HX: Hypertension, GERD with esophageal stricture dilated in April 2021 Surgeries: Yes (WISDOM TEETH/D&C/R KNEE SCOPE) Orthopedic Respiratory: No Cardiac: Yes Hypertension Neurological: No Reproductive Disorders: No Sexually Transmitted Disease: No Gastrointestinal: Yes Diverticulosis Musculoskeletal: No Endocrine: Yes HEENT: No Cancer: No Anxiety, Depression Integumentary: No Blood Disorders: No Physical Exam Vital Signs Vital Signs - First Documented 02/27/23 19:50 Temp 35.9 Pulse 81 Resp 20 B/P (MAP) 191/94 (126) Pulse Ox 97 O2 Delivery Room Air Capillary Refill : Less Than 3 Seconds Height/Weight/BMI Height: '" Weight: lbs. oz. kg; 36.00 BMI Method: General Appearance: moderate distress (appears uncomfortable), obese HEENT: PERRL/EOMI, pharynx normal Neck: non-tender, full range of motion, supple, normal inspection Respiratory: chest non-tender, lungs clear, normal breath sounds, no respi ratory distress, no accessory muscle use Cardiovascular: normal peripheral pulses, regular rate, rhythm Gastrointestinal: normal bowel sounds, soft, no pulsatile mass; No distended, No guarding, No rebound; tenderness (epigastric and RUQ) Rectal: deferred Extremities: normal range of motion, non-tender, normal capillary refill Neurologic/Psychiatric: alert, oriented x 3 Skin: normal color, warm/dry Procedures/Interventions Suture Size: 5-0 Progress/Results/Core Measures Results/Orders Lab Results Laboratory Tests Test 02/27/23 19:52 02/27/23 20:00 Range/Units Urine Color YELLOW Urine Clarity CLEAR Urine pH 5.5 5-9 Urine Specific [place] >=1.030 1.016-1.022 Urine Protein NEGATIVE NEGATIVE Urine Glucose (UA) NEGATIVE NEGATIVE Urine Ketones NEGATIVE NEGATIVE Urine Nitrite NEGATIVE NEGATIVE Urine Bilirubin NEGATIVE NEGATIVE Urine Urobilinogen 0.2 < = 1.0 MG/DL Urine Leukocyte Esterase NEGATIVE NEGATIVE Urine RBC (Auto) NEGATIVE NEGATIVE Urine RBC NONE /HPF Urine WBC NONE /HPF Urine Squamous Epithelial Cells 5-10 /HPF Urine Crystals NONE /LPF Urine Bacteria FEW H /HPF Urine Casts NONE /LPF Urine Mucus SMALL H /LPF Urine Culture Indicated NO Urine Opiates Screen NEGATIVE NEGATIVE Urine Oxycodone Screen NEGATIVE NEGATIVE Urine Methadone Screen NEGATIVE NEGATIVE Urine Propoxyphene Screen NEGATIVE NEGATIVE Urine Barbiturates Screen NEGATIVE NEGATIVE Ur Tricyclic Antidepressants Screen NEGATIVE NEGATIVE Urine Phencyclidine Screen NEGATIVE NEGATIVE Urine Amphetamines Screen NEGATIVE NEGATIVE Urine Methamphetamines Screen NEGATIVE NEGATIVE Urine Benzodiazepines Screen NEGATIVE NEGATIVE Urine Cocaine Screen NEGATIVE NEGATIVE Urine Cannabinoids Screen NEGATIVE NEGATIVE White Blood Count 9.1 4.3-11.0 10^3/uL Red Blood Count 4.43 3.80-5.11 10^6/uL Hemoglobin 13.5 11.5-16.0 g/dL Hematocrit 39 35-52 % Mean Corpuscular Volume 88 80-99 fL Mean Corpuscular Hemoglobin 31 25-34 pg Mean Corpuscular Hemoglobin Concent 35 32-36 g/dL Red Cell Distribution Width 12.5 10.0-14.5 % Platelet Count 247 130-400 10^3/uL Mean Platelet Volume 9.7 9.0-12.2 fL Immature Granulocyte % (Auto) 0 % Neutrophils (%) (Auto) 53 42-75 % Lymphocytes (%) (Auto) 36 12-44 % Monocytes (%) (Auto) 7 0-12 % Eosinophils (%) (Auto) 3 0-10 % Basophils (%) (Auto) 0 0-10 % Neutrophils # (Auto) 4.8 1.8-7.8 10^3/uL Lymphocytes # (Auto) 3.3 1.0-4.0 10^3/uL Monocytes # (Auto) 0.7 0.0-1.0 10^3/uL Eosinophils # (Auto) 0.3 0.0-0.3 10^3/uL Basophils # (Auto) 0.0 0.0-0.1 10^3/uL Immature Granulocyte # (Auto) 0.0 0.0-0.1 10^3/uL Sodium Level 139 135-145 MMOL/L Potassium Level 3.8 3.6-5.0 MMOL/L Chloride Level 103 98-107 MMOL/L Carbon Dioxide Level 26 21-32 MMOL/L Anion Gap 10 5-14 MMOL/L Blood Urea Nitrogen 27 H 7-18 MG/DL Creatinine 1.10 0.60-1.30 MG/DL Estimat Glomerular Filtration Rate 62 BUN/Creatinine Ratio 25 Glucose Level 98 70-105 MG/DL Calcium Level 9.1 8.5-10.1 MG/DL Corrected Calcium 9.0 8.5-10.1 MG/DL Total Bilirubin 0.3 0.1-1.0 MG/DL Aspartate Amino Transf (AST/SGOT) 64 H 5-34 U/L Alanine Aminotransferase (ALT/SGPT) 46 0-55 U/L Alkaline Phosphatase 123 40-136 U/L Total Protein 6.9 6.4-8.2 GM/DL Albumin 4.1 3.2-4.5 GM/DL Lipase 38 8-78 U/L My Orders Orders - GIL MAC MD Ua Culture If Indicated (02/27/23 19:53) Urine Bedside (02/27/23 19:53) Drug Screen Stat (Urine) (02/27/23 19:53) Comprehensive Metabolic Panel (02/27/23 20:07) Lipase (02/27/23 20:07) Ed Iv/Invasive Line Start (02/27/23 20:07) Cbc With Automated Diff (02/27/23 20:07) Ct Abdomen/Pelvis W (02/27/23 20:07) Pantoprazole Injection (Protonix Injecti (02/27/23 20:08) Ketorolac Injection (Toradol Injection) (02/27/23 20:08) Fentanyl Inj (Sublimaze Injection) (02/27/23 20:08) Ns Iv 1000 Ml (Sodium Chloride 0.9%) (02/27/23 20:09) Iohexol Injection (Omnipaque 350 Mg/Ml 1 (02/27/23 20:15) Received Contrast (Hold Metformin- Contr (02/27/23 20:15) Ns (Ivpb) (Sodium Chloride 0.9% Ivpb Bag (02/27/23 20:15) Fentanyl Inj (Sublimaze Injection) (02/27/23 21:36) Rx-Hydrocodone/Apap 5-325 Mg (Rx-Vicodin (02/27/23 21:45) Medications Given in ED Current Medications Medications Dose Ordered Sig/Phoebe Route Start Time Stop Time Status Last Admin Dose Admin Acetaminophen/ Hydrocodone Bitart 1 ea Q6H PRN PO 02/27/23 21:45 02/27/23 21:50 DC 02/27/23 21:45 1 EA Iohexol 100 ml ONCE ONCE IV 02/27/23 20:15 02/27/23 20:16 DC 02/27/23 20:26 100 ML Sodium Chloride 100 ml ONCE ONCE IV 02/27/23 20:15 02/27/23 20:16 DC 02/27/23 20:27 100 ML Vital Signs/I&O 02/27/23 02/27/23 19:50 21:50 Temp 35.9 Pulse 81 72 Resp 20 18 B/P (MAP) 191/94 (126) 163/96 Pulse Ox 97 98 O2 Delivery Room Air Room Air Blood Pressure Mean: 126 Progress Progress Note #1: Progress Note Potential diagnosis of gastritis, GERD, esophageal stricture, peptic ulcer disease, cholecystitis, colitis, diverticulitis, pancreatitis. Establish peripheral IV access and send labs for complete blood count, comprehensive metabolic profile, lipase, urinalysis, urine drug screen, bedside test. Obtain CT scan of the abdomen pelvis with IV contrast to evaluate for possible pathology in the abdomen and pelvis causing her symptoms. Administer normal saline 1 L IV fluid bolus for hydration, Toradol 15 mg IV for pain, fentanyl 50 mcg IV for pain, pantoprazole 40 mg IV for pain and gastritis. Progress Note #2: Time: 20:18 Progress Note Complete blood count shows a normal white blood cell count of 9.1. She is not anemic with a hemoglobin of 13.5. Her urinalysis had concentration to go along with some dehydration with a specific gravity greater than 1.030. Her urine test was negative. Urine drug screen was negative. Her urinalysis did not show any nitrites, leukocyte esterase, white blood cells to indicate a UTI. Progress Note #3: Time: 20:30 Progress Note Comprehensive metabolic profile showed no acute significant abnormality in terms of her basic electrolytes. She did have mild elevation of her BUN to 27 with a creatinine of 1.1 which would go along with some mild dehydration. Her total bilirubin was not elevated at 0.3. Her AST was slightly elevated to 64 with an ALT of 46. Her lipase was not elevated at 38 which helps count against panc reatitis. She did report improvement in her pain and symptoms after medications were administered here in the ED. Awaiting CT to further evaluate her symptoms. Progress Note #4: Time: 21:06 Progress Note On my personal interpretation and review of her CT scan of the abdomen pelvis with IV contrast I did not appreciate acute obstruction, appendicitis, perforation or free air, gallbladder wall thickening or pericholecystic fluid, fluid or inflammation around the pancreas. 2114 I reviewed the radiologist report on the CT scan of the abdomen and pelvis with IV contrast. They did not see any acute inflammatory process throughout the scan. They did feel that there was a small air-containing gallstone within the gallbladder but no signs of acute cholecystitis. As patient was having improved pain control after medicine will encourage her to follow a low-fat bland diet and order an outpatient ultrasound to further evaluate her gallbladder. Encouraged to check back with the clinic and primary care for continued evaluation and work-up. Patient reports she has had nuclear medicine scan in 2020 and it showed 66% function of her gallbladder then. She was having pain come back more as she was getting anxious in the ED with her symptoms and elevated blood pressure. She has a history of HELLP syndrome with her 20 years ago and gets anxious and upset with blood pressure cuff going off and seeing high blood pressure on the monitor. Will give additional dose of Fentanyl 50 mcg IV here in ED and discharge with take home pack of Hydrocodone/Acetaminophen 5/325 mg pills 1 every 6 hours prn severe pain and script to pharmacy to continue these for 3 additional days. Also sent script for Protonix 40 mg po q day x 30 days for gastritis/gerd. Counseled on follow up and return precautions. Diagnostic Imaging Diagonstic Imaging: CT Plain Films/CT/US/NM/MRI: abdomen, pelvis Comments NAME: FLAKO DE LEON [facility] REC#: [id number] PT STATUS: REG ER : 1975 PHYSICIAN: GIL MAC MD ADMIT DATE: 02/27/23/ER FS Signed Date of Exam:02/27/23 CT ABDOMEN/PELVIS W PROCEDURE: CT abdomen and pelvis with contrast. TECHNIQUE: Multiple contiguous axial images were obtained through the abdomen and pelvis after administration of intravenous contrast. Auto Exposure Controls were utilized during the CT exam to meet ALARA standards for radiation dose reduction. All CT scans use one or more of the following dose optimizing techniques: automated exposure control, MA and/or KvP adjustment based on patient size and exam type or iterative reconstruction. INDICATION: Right upper quadrant and epigastric pain. FINDINGS: The lung bases demonstrate no finding of pneumonia or edema. There is no pleural or pericardial effusion. The liver demonstrates no focal intrahepatic abnormality. The gallbladder is nondistended. There is a small apparent gas-filled stone within the gallbladder. There is no biliary dilatation. The pancreas is normal. The spleen is normal in size. There is no adrenal mass. The kidneys enhance normally and are nonobstructed. There is no finding of bowel obstruction. There is no gastric wall thickening. There is no finding of an appendicitis. There is moderate stool within the colon. Diverticulosis is present without diverticulitis. The urinary bladder is unremarkable. There is an intrauterine device in place. There is no pelvic mass. There is no pelvic free fluid. There is no finding of free air, abscess or adenopathy. Aorta is normal. There is no acute osseous abnormality though there are advanced degenerative endplate changes and multiple vacuum discs for age. There is a grade 1 anterolisthesis of L5 on S1 due to L5 pars defects. IMPRESSION: 1. No CT finding of an acute inflammatory or obstructive process within the abdomen or pelvis. 2. Single questionable tiny gas containing stone within the gallbladder. There is no gallbladder distention or evidence of biliary dilatation. 3. The pancreas is normal. 4. There is no bowel obstruction. Uncomplicated diverticulosis is present. There is no appendicitis. 5. No free fluid. Dictated by: Dictated on workstation # [id number] Dict: 02/27/232045 Trans: 02/27/232105 [facility] [id number] Interpreted by: NATE DELUCA MD Electronically signed by: NATE DELUCA MD 02/27/232105 Reviewed: Reviewed by Me (I reviewed radiologist report at 2114) Departure Impression Primary Impression: Epigastric abdominal pain Disposition: 01 HOME, SELF-CARE Condition: Improved Departure-Patient Inst. Decision time for Depature: 21:47 Referrals: SELFASHWINI MD (PCP/Family) Primary Care Physician Patient Instructions: Abdominal Pain, Adult ED, Gallstones ED, Gastritis ED, Ulcer and Gastritis Diet Add. Discharge Instructions: Follow a low fat bland diet. Have ultrasound to evaluate the gallbladder and your doctor may want to order a Nuclear Medicine scan of your gallbladder to evaluate how your gallbladder is functioning. Check back with Dr. Buck as he may need to repeat the EGD scope of your esophagus and stomach to look for further stricture or ulcer disease. Take acid reducing medicine to try and help with your symptoms. All discharge instructions reviewed with patient and/or family. Voiced underst anding. Scripts Pantoprazole Sodium (Pantoprazole Sodium) 40 Mg Tablet.dr 40 MG PO DAILY for Epigastric Pain for 30 Days, #30 TAB 0 Refills Prov: GIL MAC MD 02/27/23 Hydrocodone/Acetaminophen (Hydrocodone-Acetamin 5-325 mg) 5 Mg-325 Mg Tablet 1 TAB PO Q6H PRN for PAIN SEVERE for 3 Days, #12 TAB 0 Refills Prov: GIL MAC MD 02/27/23 GIL MAC MD February 27, 2023 20:15
[2023-02-27 20:16] LABS: AMPHETAMINE SCREEN, URINE NEGATIVE (NEGATIVE); BARBITURATE SCREEN URINE NEGATIVE (NEGATIVE); BENZODIAZEPINES SCREEN URINE NEGATIVE (NEGATIVE); CANNABINOID SCREEN, URINE NEGATIVE (NEGATIVE); COCAINE SCREEN URINE NEGATIVE (NEGATIVE); METHADONE STAT NEGATIVE (NEGATIVE); OPIATE SCREEN URINE NEGATIVE (NEGATIVE); OXYCODONE STAT NEGATIVE (NEGATIVE); PROPOXYPHENE STAT NEGATIVE (NEGATIVE); TRICYCLIC ANTIDEPRESSANTS SCRE NEGATIVE (NEGATIVE)
[2023-02-27 20:26] LABS: ALBUMIN 4.1 GM/DL (3.2-4.5); BILIRUBIN,TOTAL 0.3 MG/DL (0.1-1.0); CALCIUM 9.1 MG/DL (8.5-10.1); CREATININE SERUM 1.1 MG/DL (0.60-1.30); POTASSIUM 3.8 MMOL/L (3.6-5.0); TOTAL PROTEIN 6.9 GM/DL (6.4-8.2)
--- NOTE | 2023-02-27 21:06 | Diagnostic Imaging Report ---
PROCEDURE: CT abdomen and pelvis with contrast. TECHNIQUE: Multiple contiguous axial images were obtained through the abdomen and pelvis after administration of intravenous contrast. Auto Exposure Controls were utilized during the CT exam to meet ALARA standards for radiation dose reduction. All CT scans use one or more of the following dose optimizing techniques: automated exposure control, MA and/or KvP adjustment based on patient size and exam type or iterative reconstruction. INDICATION: Right upper quadrant and epigastric pain. FINDINGS: The lung bases demonstrate no finding of pneumonia or edema. There is no pleural or pericardial effusion. The liver demonstrates no focal intrahepatic abnormality. The gallbladder is nondistended. There is a small apparent gas-filled stone within the gallbladder. There is no biliary dilatation. The pancreas is normal. The spleen is normal in size. There is no adrenal mass. The kidneys enhance normally and are nonobstructed. There is no finding of bowel obstruction. There is no gastric wall thickening. There is no finding of an appendicitis. There is moderate stool within the colon. Diverticulosis is present without diverticulitis. The urinary bladder is unremarkable. There is an intrauterine device in place. There is no pelvic mass. There is no pelvic free fluid. There is no finding of free air, abscess or adenopathy. Aorta is normal. There is no acute osseous abnormality though there are advanced degenerative endplate changes and multiple vacuum discs for age. There is a grade 1 anterolisthesis of L5 on S1 due to L5 pars defects. IMPRESSION: 1. No CT finding of an acute inflammatory or obstructive process within the abdomen or pelvis. 2. Single questionable tiny gas containing stone within the gallbladder. There is no gallbladder distention or evidence of biliary dilatation. 3. The pancreas is normal. 4. There is no bowel obstruction. Uncomplicated diverticulosis is present. There is no appendicitis. 5. No free fluid. Dictated by: Dictated on workstation # [id number]
[2023-02-27] MEDS ORDERED: ACHD5005 PO (21:46)
[2023-02-27] MEDS ORDERED: PANT40TA52 PO (21:46)
[2023-02-27 21:50] VITALS: BP 163/96
== END 2023-02-27 21:50 | disposition home or self-care (01) ==
LOC: EDUNIT# 19:47 → ER FS 19:49
DX: R10.13 Epigastric pain (principal); R10.11 Right upper quadrant pain; E66.9 Obesity, unspecified; Z68.36 Body mass index [BMI] 36.0-36.9, adult; Z28.310 Unvaccinated for COVID-19
CPT/HCPCS: 36415; 74177; 80053; 80306; 81000; 83690; 84703; 85025; Q9967

== ENCOUNTER 2023-04-21 05:30 | Outpatient (CLI) | payer BC ==
[~2023-04-21] VITALS: Ht 160 cm; Wt 120.5 kg
[~2023-04-21 05:30] MED LIST changes: +ACHD5005 PO; +PANT40TA52 PO
[2023-04-21] MEDS ORDERED: LEVO25CA4 PO (09:33)
[2023-04-21] MEDS ORDERED: SERT-414 PO (09:33)
[2023-04-28] MEDS ORDERED: HYDR-3817 PO (10:01)
== END 2023-04-21 10:07 | disposition home or self-care (01) ==
LOC: PREOP 05:30
PROVIDERS: ATTEND Surgery
DX: Z01.818 Encounter for other preprocedural examination (principal)

== ENCOUNTER → 2023-04-28 | Day surgery (SDC) | payer BC ==
[2023-04-28] VITALS (12 sets, daily range): BP systolic 135–162; BP diastolic 70–98
[~2023-04-28] VITALS: Ht 160 cm; Wt 120.5 kg
[~2023-04-28] MED LIST changes: +ACETAMINOPHEN 325 MG TABLET PO PRN; +GLYCOPYRROLATE 0.2 MG/ML (ROBINUL) 2 ML VIAL ONE; +HYDR-3817 PO; +HYDROcodone/APAP 5 MG/325 MG (LORTAB) TAB ONE; +HYDROcodone/APAP 5 MG/325 MG (LORTAB) TAB PO ONE; +HYDROmorphone 2 MG/ML VIAL (DILAUDID) IV ONE; +HYDROmorphone 2 MG/ML VIAL (DILAUDID) ONE; +KETOROLAC 30 MG/ML VIAL ONE; +LEVO25CA4 PO; +LIDOCAINE PF 2% 5 ML (XYLOCAINE) VIAL ONE; +LIDOCAINE/EPI 1%-1:100,000 (XYLOCAINE) 20ML INJ ONE; +LIDOCAINE/EPI 1%-1:100,000 (XYLOCAINE) 20ML ONE; +MEPERIDINE (DEMEROL) INJ 50 MG/ML IVP ONE; +MIDAZOLAM 2 MG/2 ML (VERSED) VIAL ONE; +NEOSTIGMINE 3 MG/3 ML VIAL ONE; +ONDANSETRON 4 MG/2 ML (SDV) Z0FRAN IVP PRN; +ONDANSETRON 4 MG/2 ML (SDV) Z0FRAN ONE; +PROMETHAZINE INJ 25 MG/ML (PHENERGAN) AMP IVP ONE; +ROCURONIUM 50 MG/5 ML (ZEMURON) VIAL IV ONE; +SERT-414 PO; +SEVOFLURANE (ULTANE) 15 ML INHAL SOLN ONE; +ceFAZolin INJECTION 2,000 MG in NS (IVPB) 50 ML IV ONE; +fentaNYL INJ 100 MCG/2 ML AMP IVP ONE; +fentaNYL INJ 100 MCG/2 ML AMP ONE; +morphine INJ 10 MG/ML 1ML (SYR OR VIAL) IVP PRN; +proPOfol 200 MG/20 ML (DIPRIVAN) VIAL IV ONE
--- NOTE | 2023-04-28 10:02 | Discharge Inst-Surgical ---
D/C Lap Instructions-KIDO Reconcile Patient Problems Problems Reviewed?: Yes New, Converted, or Re-Newed RX: RX on Chart Follow Up Appt in 2 weeks Activity as tolerated No driving for 24 hours No driving while on pain medications Incentive Spirometry use every 2 hours while awake Regular Diet Symptoms to Report: Fever over 101 degree F, Nausea/Vomiting Infection Signs and Symptoms to report: Increased redness, Foul odor of wound, Increased drainage Bathing instructions: May shower Operative Area Clean/Dry; Keep incision clean/dry If any problems/questions: Contact your physician or go to Emergency Room LELAND REYES APRN Apr 28, 2023 10:02
--- NOTE | 2023-04-28 10:03 | Progress Note-Pre Operative ---
Pre-Operative Progress Note Date H&P Reviewed: Apr 28, 2023 Time H&P Reviewed: 10:00 History & Physical: H&P Reviewed, Patient Examed, No changes noted Pre-Operative Diagnosis: Chronic calculous cholecystitis LELAND REYES GEOMORPHOLOGIST Apr 28, 2023 10:03
[2023-04-28] MEDS: LACTATED RINGERS 1,000 ML IV PRN ×2 (10:45→11:40)
--- NOTE | 2023-04-28 12:55 | Progress Note-Post Operative ---
Post-Operative Progess Note Surgeon (s)/Recharger (s) Surgeon PALOMA WILLS MD Recharger: bret swenson [employer] Pre-Operative Diagnosis Chronic calculous cholecystitis Post-Operative Diagnosis same Procedure & Operative Findings Date of Procedure 04/28/23 Procedure Performed/Findings laparoscopic cholecystectomy Anesthesia Type get Estimated Blood Loss Estimated blood loss (mL): minimal Specimens/Packing Specimens Removed gallbladder PALOMA WILLS MD Apr 28, 2023 12:55
--- NOTE | 2023-04-28 13:15 | OPERATIVE REPORT ---
DATE OF SERVICE: 04/28/2023 ATTENDING PRIMARY CARE PHYSICIAN: Dr. Lennox Pineda. PREOPERATIVE DIAGNOSIS: Symptomatic chronic calculous cholecystitis. POSTOPERATIVE DIAGNOSIS: Symptomatic chronic calculous cholecystitis. PROCEDURE: Laparoscopic cholecystectomy. SURGEON: Paloma Wills MD [employer] COORDINATOR: Sheng Dodge APRN ANESTHESIA: General endotracheal. ESTIMATED BLOOD LOSS: Minimal. FINDINGS: Multiple gallstones. Dilated gallbladder. DISPOSITION: The patient tolerated the procedure well. INDICATIONS: The patient is a 47-year-old female known to us. We had initially seen her for symptoms related to gastroesophageal reflux disease and peptic ulcer disease. She underwent an EGD as well as balloon dilatation on 05/06/2021 and was placed on PPI acid reducers and she states that this did help some; however, she would have recurrent episodes of abdominal pain, which now became more in the right upper abdominal quadrant and would be also associated with early satiety, abdominal bloating as well as nausea. An HIDA scan was performed, which showed normal ejection fraction; however, she continued to have symptoms and she underwent a CT scan, which did show gallstones and this was reaffirmed by ultrasound. DESCRIPTION OF PROCEDURE: The patient was brought to the operating room, laid supine on the table. After adequate IV pain and sedative medications and general endotracheal intubation, the abdomen was prepped and draped in standard surgical fashion. A 0.5% Marcaine with epinephrine was then used to anesthetize the overlying skin in the left upper abdominal quadrant and a transverse skin incision made using a #15 blade. An 0 silk suture was applied to the medial aspect of the incision for retraction and a Veress needle inserted with a low opening pressure of 0 mmHg and the abdomen was then insufflated to 15 mmHg pressure. The Veress needle removed and a 5 mm trocar placed followed by a 5 mm 45-degree angle laparoscope visualizing the peritoneal cavity. A 4-quadrant abdominal exploration was performed. There was mild hepatomegaly, distended gallbladder, no gallbladder wall thickening. Under direct visualization, we then proceeded to place a supraumbilical 10 mm port after the skin and peritoneal lining were anesthetized using 0.5% Marcaine with epinephrine and a transverse skin incision made using a #15 blade. In a similar manner, a right upper abdominal quadrant 5 mm port was placed. The patient was then placed in reverse Trendelenburg position as well as plane right side up, left side down. The fundus of the gallbladder was retracted anteriorly and superiorly. The hepatoduodenal ligament was then dissected using blunt dissection as well as electrocautery using the hook instrument as well as a [place] dissector. The entire critical view of safety was identified including the triangle of Calot as well as the cystic duct and artery as only 2 structures going into the gallbladder as well as the cystic plate behind the proximal gallbladder. A timeout was then taken and the cystic duct and artery were then clipped proximally and distally and cut with EndoShears. The gallbladder was then dissected off of the liver bed using cautery on the hook instrument with visualization of good hemostasis as well as no leaking ducts of Luschka. The gallbladder was then removed through the 10 mm port site using an EndoCatch bag. The 10 mm port site fascia and peritoneum were then closed under direct visualization using a Nathaniel-Sayra device and 0 Vicryl suture. The abdomen was desufflated and the remaining ports removed. All skin incisions were closed using 4-0 Monocryl running subcuticular sutures. Wounds were then cleaned and covered with Dermabond. The patient tolerated the procedure well. We will start IV normal pain medication as well as a clear liquid diet. Once tolerating clears, has good pain control with oral pain medications, ambulating well, we will discharge her home where she will be instructed to do no heavy lifting or exertion for the next 2 weeks. Job ID: [id number] DocumentID: [id number] Dictated Date: 04/28/2023 12:07:59 Receiving Lead Date: 04/28/2023 13:13:00 Dictated By: PALOMA WILLS MD
--- NOTE | 2023-04-28 13:21 | Anesthesia-General Post-Op ---
General Patient Condition Mental Status/LOC: Same as Preop Cardiovascular: Satisfactory Nausea/Vomiting: Absent Respiratory: Satisfactory Pain: Controlled Complications: Absent Post Op Complications Complications None Follow Up Care/Instructions Patient Instructions None needed. Anesthesia/Patient Condition Patient Condition Patient is doing well, no complaints, stable vital signs, no apparent adverse anesthesia problems. No complications reported per nursing. URBANO ALEXANDER CRNA Apr 28, 2023 13:21
== END ==
LOC: SDC 09:43
PROVIDERS: ATTEND Surgery
DX: K80.10 Calculus of gallbladder with chronic cholecystitis without obstruction (principal); G47.33 Obstructive sleep apnea (adult) (pediatric); E66.01 Morbid (severe) obesity due to excess calories; Z68.37 Body mass index [BMI] 37.0-37.9, adult; Z87.891 Personal history of nicotine dependence
CPT/HCPCS: 84703; 87081